=== PATIENT | female | born 2000 | race Caucasian/White ===

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

== ENCOUNTER 2018-02-22 17:22 | Emergency (ER) | payer OTHER ==
[~2018-02-22] VITALS: Ht 157.5 cm; Wt 87.0 kg
[2018-02-22] MEDS ORDERED: LORAZEPAM 1MG TABLET PO ONE (20:45)
[2018-02-22] MEDS ORDERED: LEVETIRACETAM 500MG PREMIX 100 ML IV ONE (20:45)
[2018-02-22 21:32] LABS: CLARITY URINE TURBID (CLEAR); COLOR URINE YELLOW (YELLOW); KETONES URINE 1+ (NEGATIVE); LEUKOCYTE ESTERASE URINE 1+ (NEGATIVE); NITRITE URINE NEGATIVE (NEGATIVE); OCCULT BLOOD URINE NEGATIVE (NEGATIVE); PH URINE 7.5 (4.5-8.0); PROTEIN URINE NEGATIVE (NEGATIVE); SPECIFIC GRAVITY URINE 1.017 (1.005-1.030)
[2018-02-22 23:27] LABS: CHLORIDE 113 mEq/L (98-107)
[2018-02-22 23:35] LABS: BASOPHILS % 0.4 % (0.0-2.0); EOSINOPHILS % 0.2 % (0.0-5.0); HEMOGLOBIN. 12.3 g/dL (12.0-16.0); LYMPHOCYTES % 18.3 % (20.0-50.0); MEAN CORPUSCULAR HEMOGLOBIN 29.2 pg (28.0-32.0); MEAN CORPUSCULAR VOLUME 87.9 fL (81.0-99.0); MEAN PLATELET VOLUME 8.9 fl (7.4-10.4); MONOCYTES % 6.9 % (2.0-8.0); NEUTROPHILS % 74.2 % (40.0-76.0); PLATELET 257 x1000/uL (130-400); RED BLOOD CELL COUNT 4.21 mill/uL (4.2-5.4); RED CELL DISTRIBUTION WIDTH 14.3 % (11.6-14.6)
[2018-02-22 23:36] LABS: CARBAMAZEPINE < 0.5 ug/mL (4-12)
[2018-02-22 23:38] LABS: INR 1.1; PROTHROMBIN TIME 11.5 sec (9.4-11.6)
[2018-02-23 00:15] VITALS: BP 108/74
== END 2018-02-23 00:20 | disposition home or self-care (01) ==
LOC: ER 17:22
DX: R56.9 Unspecified convulsions (principal); R41.82 Altered mental status, unspecified
CPT/HCPCS: 36415; 70450; 80053; 80156; 81003; 81025; 85025; 85610; 96365; 99285; J1953; J7030; Z7610